=== PATIENT | male | born 1990 ===

== ENCOUNTER 2018-11-20 21:31 | Emergency (ER) | payer SELFPAY ==
[2018-11-20 22:34] VITALS: BP 131/84
--- NOTE | 2018-11-20 22:35 | Emergency Department Report ---
Blank Doc - Documentation Documentation: This is a 28 y.o. male with complaint of numbness to LUE and left side of face x 1 week. Ordered labs. Fast track for further evaluation.
[2018-11-20 23:27] LABS: Hematocrit 45.3 % (35.5-45.6); Hemoglobin 15.5 gm/dl (11.8-15.2); Mean Corpuscular HGB Conc 34 % (32-34); Mean Corpuscular Volume 87 fl (84-94); Platelet Count 325 K/mm3 (140-440); Red Blood Count 5.23 M/mm3 (3.65-5.03); Red Cell Distribution Width 13.2 % (13.2-15.2)
[2018-11-20 23:47] LABS: BUN/Creatinine Ratio 10; Blood Urea Nitrogen 9 mg/dL (9-20); Calcium 8.9 mg/dL (8.4-10.2); Hemolysis Index 30
[2018-11-21 00:10] LABS: Basophils % (Auto) 0.4 % (0.0-1.8); Eosinophils # (Auto) 0.2 K/mm3 (0.0-0.4); Eosinophils % (Auto) 3.5 % (0.0-4.3); Lymphocytes # (Auto) 1.5 K/mm3 (1.2-5.4); Lymphocytes % (Auto) 21.9 % (13.4-35.0); Monocytes # (Auto) 0.4 K/mm3 (0.0-0.8); Monocytes % (Auto) 6.4 % (0.0-7.3)
[2018-11-21] MEDS ORDERED: XYLOCAINE 1% MPF 5 mL INFILTRATI ONE (02:32)
[2018-11-21] MEDS ORDERED: ROCEPHIN IM ONE (02:32)
[2018-11-21] MEDS ORDERED: ZITHROMAX PO ONE (02:32)
--- NOTE | 2018-11-21 02:45 | Emergency Department Report ---
ED General Adult HPI - General Chief complaint: Neuro Symptoms/Deficit Stated complaint: NUMBNESS AND TINGLING TO LEFT JAYE OF BODY Time Seen by Provider: 11/20/18 22:32 Source: patient, EMS Mode of arrival: Ambulatory Limitations: No Limitations - History of Present Illness Initial comments: Patient is a 28-year-old -[place] male who presents for left-sided numbness decreased sensation on 1 week states palpitations that started 3 days ago and penile discharge right take the dysuria frequency urgency 3 days Onset/Timin -: week(s) Location: face, upper extremity, lower extremity Radiation: distal Severity scale (0 -10): 3 Quality: burning Consistency: constant Improves with: none Worsens with: none Associated Symptoms: malaise, weakness Treatments Prior to Arrival: none - Related Data Previous Rx's Medication Instructions Recorded Last Taken Type Doxycycline [Vibramycin CAP] 100 mg PO BID 10 Days #20 capsule 11/21/18 Unknown Rx Naproxen 500 mg PO BID PRN #30 tablet 11/21/18 Unknown Rx Allergies Allergy/AdvReac Type Severity Reaction Status Date / Time No Known Allergies Allergy Verified 11/20/18 21:36 ED Review of Systems ROS: Stated complaint: NUMBNESS AND TINGLING TO LEFT JAYE OF BODY Other details as noted in HPI Constitutional: denies: chills, fever Eyes: denies: eye pain, eye discharge, vision change ENT: denies: ear pain, throat pain Respiratory: denies: cough, shortness of breath, wheezing Cardiovascular: denies: chest pain, palpitations Endocrine: no symptoms reported Gastrointestinal: denies: abdominal pain, nausea, vomiting, diarrhea, constipation, hematemesis, melena, hematochezia Genitourinary: frequency, hematuria, testicular pain, testicular mass. denies: urgency, dysuria Musculoskeletal: back pain, arthralgia. denies: joint swelling Skin: denies: rash, lesions Neurological: weakness, abnormal gait. denies: headache, paresthesias Psychiatric: denies: anxiety, depression Hematological/Lymphatic: denies: easy bleeding, easy bruising ED Past Medical Hx - Past Medical History Previous Medical History?: No - Surgical History Past Surgical History?: No - Social History Smoking Status: Never Smoker Substance Use Type: None - Medications Home Medications: Home Medications Medication Instructions Recorded Confirmed Last Taken Type Doxycycline [Vibramycin CAP] 100 mg PO BID 10 Days #20 capsule 11/21/18 Unknown Rx Naproxen 500 mg PO BID PRN #30 tablet 11/21/18 Unknown Rx ED Physical Exam - General Limitations: No Limitations General appearance: alert, in no apparent distress - Head Head exam: Present: atraumatic - Eye Eye exam: Present: normal appearance, PERRL, EOMI Pupils: Present: normal accommodation - ENT ENT exam: Present: normal orophraynx, mucous membranes moist, TM's normal bilaterally, normal external ear exam - Neck Neck exam: Present: normal inspection, tenderness, full ROM. Absent: meningismus, lymphadenopathy, thyromegaly - Respiratory Respiratory exam: Present: normal lung sounds bilaterally. Absent: respiratory distress, wheezes, stridor, chest wall tenderness - Cardiovascular Cardiovascular Exam: Present: regular rate, normal rhythm, normal heart sounds. Absent: systolic murmur, diastolic murmur, rubs, gallop - GI/Abdominal GI/Abdominal exam: Present: soft, normal bowel sounds. Absent: distended, bruit, hernia - Rectal Rectal exam: Present: deferred - exam: Present: normal inspection External exam: Present: erythema - Extremities Exam Extremities exam: Present: normal inspection, full ROM, normal capillary refill. Absent: tenderness, pedal edema, joint swelling, calf tenderness - Expanded Upper Extremity Exam Left General: Present: normal inspection. Absent: abrasion Shoulder Exam: Present: normal inspection, full ROM. Absent: tenderness, swelling Upper Arm exam: Absent: full ROM, tenderness Elbow exam: Present: ecchymosis. Absent: full ROM, tenderness, dislocation, erythema, pain w/ pronation/supination, tenderness over radial head Forearm Wrist exam: Present: full ROM, tenderness Hand Wrist exam: Present: normal inspection, full ROM Neuro motor exam: Present: wrist extension intact, thumb opposition intact, thumb IP flexion intact, fingers 2-5 abduction intact Neurosensory exam: Present: 2-point discrimination, ulnar nerve intact, median nerve intact Vascular: Present: Pallo, normal capillary refill, radial pulse, brachial pulse, ulnar pulse. Absent: vascular compromise, pulse deficit radial art, pulse deficit ulnar art, pulse deficit brachial art - Back Exam Back exam: Present: normal inspection, full ROM. Absent: tenderness, CVA tend erness (R), CVA tenderness (L), muscle spasm, paraspinal tenderness, vertebral tenderness, rash noted - Neurological Exam Neurological exam: Present: alert, oriented X3, CN II-XII intact, normal gait, motor sensory deficit, reflexes normal - Psychiatric Psychiatric exam: Present: normal affect, normal mood - Skin Skin exam: Present: warm, dry, intact, normal color. Absent: rash ED Course Vital Signs 11/20/18 22:28 Temperature 98.0 F Pulse Rate 72 Respiratory 18 Rate Blood Pressure 131/84 O2 Sat by Pulse 97 Oximetry ED Medical Decision Making - Lab Data Result diagrams: 11/20/18 22:44 11/20/18 22:44 Labs 11/20/18 11/20/18 22:44 22:44 WBC 7.0 RBC 5.23 H Hgb 15.5 H Hct 45.3 MCV 87 MCH 30 MCHC 34 RDW 13.2 Plt Count 325 Lymph % (Auto) 21.9 [place] % (Auto) 6.4 Eos % (Auto) 3.5 Baso % (Auto) 0.4 Lymph # 1.5 [place] # 0.4 Eos # 0.2 Baso # 0.0 Add Manual Diff Complete Total Counted 100 Seg Neutrophils % 67.8 Seg Neuts % (Manual) 68.0 Band Neutrophils % 0 Lymphocytes % (Manual) 27.0 Reactive Lymphs % (Man) 0 Monocytes % (Manual) 4.0 Eosinophils % (Manual) 1.0 Basophils % (Manual) 0 Metamyelocytes % 0 Myelocytes % 0 Promyelocytes % 0 Blast Cells % 0 Nucleated RBC % Not Reportable Seg Neutrophils # 4.6 Seg Neutrophils # Man 4.8 Band Neutrophils # 0.0 Lymphocytes # (Manual) 1.9 Abs React Lymphs (Man) 0.0 Monocytes # (Manual) 0.3 Eosinophils # (Manual) 0.1 Basophils # (Manual) 0.0 Metamyelocytes # 0.0 Myelocytes # 0.0 Promyelocytes # 0.0 Blast Cells # 0.0 WBC Morphology Not Reportable Hypersegmented Neuts Not Reportable Hyposegmented Neuts Not Reportable Hypogranular Neuts Not Reportable Smudge Cells Not Reportable Toxic Granulation Not Reportable Toxic Vacuolation Not Reportable Dohle Bodies Not Reportable Pelger-Huet Anomaly Not Reportable Yong Rods Not Reportable Platelet Estimate Consistent w auto Clumped Platelets Not Reportable Plt Clumps, EDTA Not Reportable Large Platelets Not Reportable Giant Platelets Not Reportable Platelet Satelliting Not Reportable Plt Morphology Comment Not Reportable RBC Morphology Normal Dimorphic RBCs Not Reportable Polychromasia Not Reportable Hypochromasia Not Reportable Poikilocytosis Not Reportable Anisocytosis Not Reportable Microcytosis Not Reportable Macrocytosis Not Reportable Spherocytes Not Reportable Pappenheimer Bodies Not Reportable Sickle Cells Not Reportable Target Cells Not Reportable Tear Drop Cells Not Reportable Ovalocytes Not Reportable Helmet Cells Not Reportable [place] Bodies Not Reportable [place] Rings Not Reportable [place] Cells Not Reportable Bite Cells Not Reportable Crenated Cell Not Reportable Elliptocytes Not Reportable Acanthocytes (Spur) Not Reportable Rouleaux Not Reportable Hemoglobin C Crystals Not Reportable Schistocytes Not Reportable Malaria parasites Not Reportable Mp Bodies Not Reportable Hem Pathologist Commnt No Sodium 141 Potassium 3.6 Chloride 99.2 Carbon Dioxide 29 Anion Gap 16 BUN 9 Creatinine 0.9 Estimated GFR > 60 BUN/Creatinine Ratio 10 Glucose 91 Calcium 8.9 - Radiology Data Radiology results: report reviewed, image reviewed cc: PALOMO COLEY NP PROCEDURE: CT HEAD/BRAIN WO CON TECHNIQUE: Computerized tomography of the head was performed without contrast material. CT DOSE LENGTH PRODUCT: mGycm HISTORY: left side numbness COMPARISONS: None . FINDINGS: Skull and scalp: Normal . Paranasal sinuses: Normal . Ventricles and subarachnoid spaces: Normal . Cerebrum: No evidence of hemorrhage, acute infarction or mass . Cerebellum and brainstem: No evidence of hemorrhage, acute infarction or mass . Vasculature: Normal . IMPRESSION: Normal Examination . This document is electronically signed by Iván Mcguire MD., November 21 2018 03:12:02 AM ET Transcribed By: CO Dictated By: IVÁN MCGUIRE MD Electronically Authenticated By: IVÁN MCGUIRE MD Signed Date/Time: 11/21/18 0314 DD/ 0000 TD/TT: 11/21/18 0307 - Medical Decision Making ct head normal, pt tx'd for std no will follow up with health department for HIV, HSV, and Syphlis screening pt verbalized agreement and understanding of discharge plan. Critical care attestation.: If time is entered above; I have spent that time in minutes in the direct care of this critically ill patient, excluding procedure time. ED Disposition Clinical Impression: STD (male), Neuropathy Disposition: DC-01 TO HOME OR SELFCARE Is pt being admited?: No Does the pt Need Aspirin: No Condition: Stable Instructions: Sexually Transmitted Diseases (ED) Additional Instructions: follow up with [facility] for HIV, Herpes, and Syphlis screening Prescriptions: Doxycycline [Vibramycin CAP] 100 mg PO BID 10 Days #20 capsule Naproxen 500 mg PO BID PRN #30 tablet PRN Reason: pain Referrals: GURVINDER LUGO MD [Primary Care Provider] - 3-5 Days Forms: Work/School Release Form(ED) Time of Disposition: 03:45
--- NOTE | 2018-11-21 03:14 | Cat Scan Report ---
PROCEDURE: CT HEAD/BRAIN WO CON TECHNIQUE: Computerized tomography of the head was performed without contrast material. CT DOSE LENGTH PRODUCT: mGycm HISTORY: left side numbness COMPARISONS: None . FINDINGS: Skull and scalp: Normal . Paranasal sinuses: Normal . Ventricles and subarachnoid spaces: Normal . Cerebrum: No evidence of hemorrhage, acute infarction or mass . Cerebellum and brainstem: No evidence of hemorrhage, acute infarction or mass . Vasculature: Normal . IMPRESSION: Normal Examination . This document is electronically signed by Iván Pepe MD., November 21 2018 03:12:02 AM ET
[2018-11-21 03:36] LABS: Basophils % (Manual) 0 % (0.0-1.8); Platelet Estimate Consistent w Auto; RBC Morphology Normal; Total Cells Counted 100
== END 2018-11-21 04:02 | disposition home or self-care (01) ==
LOC: ED 21:31
DX: A53.9 Syphilis, unspecified (principal); G62.9 Polyneuropathy, unspecified; Z21 Asymptomatic human immunodeficiency virus [HIV] infection status
CPT/HCPCS: 36415; 70450; 80048; 85007; 85025; 96372; 99284; J0696